=== PATIENT | male | born 1980 | race Caucasian/White ===

== ENCOUNTER 2022-03-21 18:06 | Emergency (ER) | payer OTHER, SELFPAY ==
[2022-03-21 18:08] VITALS: BP 135/101; PULSE 92; RESP 18; TEMP 37; O2SAT 97; BMI 28.6
[2022-03-21] MEDS: Tetracaine 0.5% Ophthalmic Bottle OPHTHALMIC (19:54)
[2022-03-21] MEDS: Fluorescein 1 MG STRIP 1 STRIP OPHTHALMIC (19:55)
[2022-03-21] MEDS: Diphth,Pertuss(Acell),Tet Vac 0.5 ML Vial IM (20:31)
[2022-03-21] MEDS: Erythromycin Ophthalmic (NSY) 1 GM OPTH.TUBE 1 APPLIC LEFT EYE (20:33)
--- NOTE | 2022-03-21 23:19 | EDS_ITS ---
HPI History of Present Illness Chief Complaint: Eye Problem Informant: patient Onset/Context/Timing Location: Left Eye Onset: Days (4 days ago) Context: Sudden Onset Timing: Continuous Worsened by: Nothing Relieved by: Nothing Associated Symptoms Associated Symptoms - Eyes: Crusting, Drainage (Watery), Foreign body sensation, Itching, Matting, Pain and Redness; Negative for Burning, Eyelid swelling and Photophobia Visual Changes: left: Blurred vision History of injury: Yes and Foreign body Visual correction: None Narrative Narrative: Patient presents with left eye injury that occurred 4 days ago. Patient was grinding concrete when something got into his eye. Patient denies wearing glasses or contact lenses. Patient admits to crusting and watery drainage. Patient admits to some redness in his left eye. Patient feels like there is something in his eye still. Patient admits to some intermittent blurred vision in his left eye. Patient states this is worse whenever it becomes watery. PFSH PFSH Medical History no medical history no medical history Allergy/AdvReac Type Severity Reaction Status Date / Time No Known Allergies Allergy Verified 03/21/22 18:08 Surgical History no surgical history no surgical history Social History Smoking Status: Former smoker ROS ROS ED Constitutional Constitutional ED: Denies chills or fever(s) Eyes Eyes: Reports blurry vision; Denies diplopia ENT ENT ED: Denies rhinorrhea or sore throat Cardiovascular Cardiovascular: Denies chest pain or palpitations Respiratory/Chest Respiratory/Chest: Denies cough or dyspnea Gastrointestinal Gastrointestinal: Denies nausea or vomiting Genitourinary Genitourinary ED: Denies dysuria or hematuria Musculoskeletal Musculoskeletal: Reports back pain; Denies neck pain Integumentary Denies abscess or rash Neurologic Neurologic: Denies headache(s) or weakness Allergic/Immunologic Allergic/Immunologic ED: Denies mouth swelling or urticaria EXAM Physical Exam Const Vital Signs: 03/21/22 18:08 Temperature 98.6 F Temperature Source Temporal Pulse Rate 92 Respiratory Rate 18 Blood Pressure 135/101 H Blood Pressure Mean 112 Pulse Ox 97 Oxygen Delivery Method Room Air Positive well nourished and well developed General Appearance ED: well developed and NAD HEENT atraumatic Eyes Visual Field: No peripheral vision loss and No central vision loss Alignment: alignment normal Periorbital: periorbital findings normal Eyelid: eyelids normal Conjunctiva: conjunctiva abnormal left Details: injection Positive for diffuse, discharge and subconjuctival hemorrhage Sclera: sclera normal Cornea: cornea abnormal Positive for left Cornea - Left Eye: Positive for abrasion Details: Positive for punctate and at clock position (7 o'clock position) and foreign body Details: Positive for metal, rust ring present and at clock position (7 o'clock position) and fluorescein used Pupil: PERRL and accommodation reflex normal EOM: Negative for EOM abnormal or movement deficit Slit Lamp: slit lamp exam performed with fluorescein and anterior chamber normal appearing and normal depth Neck supple and no JVD Neuro oriented x3, CN's II-XII intact bilaterally, moves all extremities and no sensory deficits noted Sensorium / Orientation: alert Motor Exam: strength 5/5 throughout MDM MDM MDM Narrative Medical decision making narrative: Patient was given a tetanus booster here. Tetracaine and fluorescein dye was applied. The foreign body was removed with an ophthalmic colleen using a slit lamp. Patient tolerated procedure well. Most of the rust ring was also removed. Patient was instructed to follow-up with ophthalmology in 1 to 2 days. Patient was given erythromycin ophthalmic ointment to his left eye. Patient was instructed to apply this 4 times a day. Patient was instructed to return if worse in any way. Patient understood and was agreeable with the plan. All questions were answered. Procedures Other Procedures Procedure(s): Foreign body removal: Tetracaine eyedrops were applied to the left eye. Under slit-lamp examination, the foreign body was removed with an op hthalmic colleen. Patient tolerated the procedure well. Erythromycin ophthalmic ointment was applied to the left eye with instructions to apply 4 times daily. Discharge Plan Triage Chief Complaint: Eye Problem ED Provider: Buddy Price Dx/Rx/DC Orders Clinical Impression: Foreign body in cornea, left eye, initial encounter, Corneal abrasion, left Instructions: ED Corneal Abrasion, ED Corneal Foreign Body, Removed Stand Alone Forms: Work Status Form Primary Care Provider: Care Physician,No Primary Referrals: Sandy Franklin MD [STAFF PHYSICIAN] - As soon as possible Care Physician,No Primary [Primary Care Provider] - Clinic,NOW [NON-STAFF] - 3-5 Days Disposition Disposition: Home, Self Care Discharge Date/Time: 03/21/22 20:57
== END 2022-03-21 20:57 | disposition home or self-care (01) ==
PROVIDERS: Emergency Provider Emergency Medicine; Visit Provider Emergency Medicine
DX: T15.02XA Foreign body in cornea, left eye, initial encounter (principal); Z87.891 Personal history of nicotine dependence; X58.XXXA Exposure to other specified factors, initial encounter; S05.02XA Injury of conjunctiva and corneal abrasion without foreign body, left eye, initial encounter; Z23 Encounter for immunization
CPT/HCPCS: 65222; 90471; 90715; 99283